=== PATIENT | male | born 1965 | race Caucasian/White ===

== ENCOUNTER 2025-01-20 09:28 | Outpatient (RCR) | payer MEDICAID, SELFPAY ==
--- NOTE | 2024-12-28 15:28 | CTCCONSULT_ITS ---
[facility] [address] [place], [place] [address] Consultation Note Date: 12/28/2024 MR#: [id number] Name: PRICILLA LAKHANI : 1965 Dx: C34.32 Malignant neoplasm of lower lobe, left bronchus or lung Referring physician. Chepe Donis MD Reason for consultation. Patient with pT2aN0 status post left lower lobectomy referred for postoperation radiation therapy History of Present Illness: Patient is a 59-year-old gentleman underwent left partial lobectomy performed at [facility] by Dr. 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 It was also positive for lymphovascular invasion and perineural invasion and the tumor was present at hilar margin involving perivascular and peribronchial soft tissue. 2 hilar lymph nodes were negative for mets pT2pN0. Dr. Donis recommended radiation therapy. Patient here to learn about this. Recovering satisfactorily from the operation has no trouble with breathing or significant pain. Past Medical History: Allergic rhinitis diabetes mellitus type 2 essential hypertension hyperlipidemia obstructive sleep apnea restless leg syndrome Meds. Metformin tramadol carvedilol pramipexole Allergies penicillins Social History: Patient currently on disability; lives in [place] Review of Systems: Has some surgery related chest wall pain; denies shortness of breath weight loss Physical Exam: General: Adequate nourished appearing gentleman in no acute distress HEENT: Atraumatic normocephalic extract muscle intact no oral lesions no cervical or supraclavicular adenopathy CV: Chest clear to auscultation heart regular rate and rhythm ABD: Soft no organomegaly tenderness EXT: No cyanosis clubbing or edema. Assessment: 1. 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 Positive for lymphovascular invasion perineural invasion tumor present at hilar margin. 2. Postop radiation therapy clear reduces likely local regional recurrence with surgical margins which are positive according to Lung Cancer Study [facility] and a large Kinyarwanda trial along with improved 5-year survival. 3. Modern VMAT method dose of 5000 to 6000 cGy will be delivered to area at risk. 4. Side effects explained consent signed. 5. Thank you for allowing me to evaluate and manage this patient. Electronically signed by: Guy Stevens MD, BRETR 12/28/2024 3:25 PM
--- NOTE | 2024-12-28 15:59 | CTCTXPLN_ITS ---
[facility] [place] [address] [place], [place] [address] Physician Clinical Treatment Planning Note Date of Service: 12/28/2024 Name: PRICILLA LAKHANI D.O.B.: 1965 The patient has agreed to proceed with Radiation therapy. Tests and supporting medical records were interpreted to assist in defining the tumor location and extent of disease. Further imaging will be necessary to contour and delineate the volume to which the XRT will be provided. A. Treatment Intent: Curative B. Modality: 10 MV C. Requested Technique: VMAT D. Treatment Site: Chest E. Critical structures to be contoured on plan: F. In order to accomplish this plan, I am ordering/Prescribing the followin. Simulations (s) will be performed to accomplish a reproducible treatment position, to determine optimal treatment portals/beam arrangements, to design beam modifying devices and verify treatment portals on patient prior to the commencement of Radiation Therapy. Vac-Alfonso 2. Devices; for immobilization and beam shapin. CT Guidance for placement of XRT brown Scan area: 4. Portal images Frequency: 5. Invivo transit dose measurement once per week on all VMAT patients. 6. Special Physics Consult Requested for: 7. Other requests: G. Dose Objectives: curative Electronically signed by: Guy Stevens M.D. 12/28/2024 3:57 PM
--- NOTE | 2024-12-28 16:09 | CTCTXPLNST_ITS ---
Radiation Oncology Treatment Planning Sheet Name: PRICILLA LAKHANI MR#: [id number] : 1965 Dx: C34.32 Malignant neoplasm of lower lobe, left bronchus or lung Date of Service: 12/28/2024 Account #: ?? Pt Treatment Intent: curative palliative other: Stage: Procedure CPT # Ordered Spec. Procedure 36145 Mcallister Complex (set-up) 87558 T3 ? T 10 1 Mcallister Simple 86615 IMRT Plan 48933 1 MLC Devices VMAT 06521 3 Mcallister 3 D 16931 TRTMT dev Complex 24677 Vac-Alfonso 1 TRTMT dev simple 60945 Basic [place] 08109 6 Special Dosimetry 03710 Spec Physics 17665 Port Films 07507 SRS Cranial/1FX 62869 SBR 5 FX or Less /ex: 5 = 5 fx 75497 IMRT Simple 34712 6000 30 IMRT Complex 81179 IGRT 70675 30 Rad del com 6-10 87591 Rad del com 11- 88383 Cont Med Physics 19215 7 Treatment Planning 18299 1 Rad del com 20 mev 34957 Rad del inter 6 12173 Rad del inter 04-12 59459 Rad del simple 6-10 44725 Rad del simple 11 46943 Special Port Plan 83466 TRTMT dev inter 37807 Isodose Complex 56490 Isodose simple 15333 Resp Motion Mgmt Simulation 71006 Placement of Fiducial Markers 47675 Electronically Signed By: Guy Stevens MD, DABR 12/28/2024 4:06 PM
== END 2025-01-22 23:59 | disposition home or self-care (01) ==
LOC: SCTC 09:28
PROVIDERS: PCP Student in an Organized Health Care Education/Training Program; Referring Provider Internal Medicine Hematology & Oncology; Visit Provider Radiology Therapeutic Radiology
DX: Z51.0 Encounter for antineoplastic radiation therapy (principal); C34.32 Malignant neoplasm of lower lobe, left bronchus or lung; Z90.2 Acquired absence of lung [part of]
CPT/HCPCS: 77014; 77290; 77300; 77301; 77334; 77338; 77385; 99213; G0463

== ENCOUNTER 2025-02-21 09:20 | Outpatient (RCR) | payer MEDICAID, SELFPAY ==
--- NOTE | 2025-01-24 11:04 | CTCTRTNOTE_ITS ---
[facility] [address] [place], [place] [address] Weekly Management Date: 01/24/2025 ?? Name: PRICILLA KAR DomínguezB.: 1965 A. Patient is currently at 800 cGy. B. Patient is tolerating treatment well. C. Resume radiation therapy. Electronically signed by: Guy Stevens M.D. 01/24/2025 11:02 AM
== END 2025-02-21 23:59 | disposition home or self-care (01) ==
LOC: SCTC 09:20
PROVIDERS: PCP Student in an Organized Health Care Education/Training Program; Referring Provider Student in an Organized Health Care Education/Training Program; Visit Provider Radiology Therapeutic Radiology
DX: Z51.0 Encounter for antineoplastic radiation therapy (principal); C34.32 Malignant neoplasm of lower lobe, left bronchus or lung; Z90.2 Acquired absence of lung [part of]; R53.83 Other fatigue; E11.9 Type 2 diabetes mellitus without complications; I10 Essential (primary) hypertension; E78.5 Hyperlipidemia, unspecified; G47.33 Obstructive sleep apnea (adult) (pediatric); G25.81 Restless legs syndrome; Z79.84 Long term (current) use of oral hypoglycemic drugs
CPT/HCPCS: 77336; 77385

== ENCOUNTER 2025-03-15 10:05 | Outpatient (RCR) | payer MEDICAID, SELFPAY | END 2025-03-24 23:59 | disposition home or self-care (01) | LOC: SCTC 10:05 | PROVIDERS: PCP Student in an Organized Health Care Education/Training Program; Referring Provider Student in an Organized Health Care Education/Training Program; Visit Provider Radiology Therapeutic Radiology | DX: Z51.0 Encounter for antineoplastic radiation therapy (principal); C34.32 Malignant neoplasm of lower lobe, left bronchus or lung; R53.0 Neoplastic (malignant) related fatigue | CPT/HCPCS: 77336; 77385; 99213; G0463 ==